=== PATIENT | male | born 1990 | race Two or more races ===

== ENCOUNTER → 2020-12-14 | Outpatient (CLI) | payer OTHER | END | disposition home or self-care (01) | LOC: OFIC 805 12:00 | PROVIDERS: ATTEND Otolaryngology Otology & Neurotology | DX: H60.393 Other infective otitis externa, bilateral (principal); H61.23 Impacted cerumen, bilateral; H92.03 Otalgia, bilateral ==

== ENCOUNTER 2020-12-26 15:21 | Outpatient (CLI) | payer OTHER | END 2020-12-26 16:20 | disposition home or self-care (01) | LOC: OFIC 805 15:21 | PROVIDERS: ATTEND Otolaryngology Otology & Neurotology | DX: H60.393 Other infective otitis externa, bilateral (principal); H61.23 Impacted cerumen, bilateral; H92.03 Otalgia, bilateral ==